=== PATIENT | female | born 1995 | race Caucasian/White ===

== ENCOUNTER 2017-05-29 07:47 | Inpatient (IN) | payer BC, OTHER ==
[2017-05-29] MEDS ORDERED: diphenhydrAMINE 50 MG CAPSULE PO PRN (14:45)
[2017-05-29] MEDS ORDERED: MAG HYDROX/AL HYDROX/SIMETH 30 ML LIQUID UDC PO PRN (14:45)
[2017-05-29] MEDS ORDERED: MIRALAX 17 GM POWD.PACK PO PRN (14:45)
[2017-05-29] MEDS ORDERED: METHOCARBAMOL 750 MG TABLET PO PRN (14:45)
[2017-05-29] MEDS ORDERED: LORAZEPAM 1 MG TABLET PO PRN ×2 (14:45)
[2017-05-29] MEDS ORDERED: ONDANSETRON ODT 4 MG TAB.RAPDIS SL PRN (14:45)
[2017-05-29] MEDS ORDERED: ACETAMINOPHEN 325 MG TABLET PO PRN (14:45)
[2017-05-29] MEDS ORDERED: LORAZEPAM 2 MG/1 ML VIAL IM PRN (14:45)
[2017-05-29] MEDS ORDERED: LOPERAMIDE HCL 2 MG CAPSULE PO PRN ×2 (14:45)
[2017-05-29] MEDS ORDERED: HYDROXYZINE PAMOATE 25 MG CAPSULE PO PRN (14:45)
[2017-05-29] MEDS ORDERED: DICYCLOMINE HCL 20 MG TABLET PO PRN (14:45)
[2017-05-29] MEDS ORDERED: IBUPROFEN 600 MG TABLET PO PRN (14:45)
[2017-05-29] MEDS ORDERED: ONDANSETRON 4 MG/2 ML VIAL IM PRN (14:45)
[2017-05-29] MEDS ORDERED: CLONIDINE HCL 0.1 MG TABLET PO PRN (14:45)
[2017-05-29] MEDS ORDERED: MAGNESIUM HYDROXIDE 30 ML LIQUID UDC PO PRN (14:45)
--- NOTE | 2017-05-29 14:45 | NUR ---
Pre-assessment note: Assessed pt in intake office, pt is alert and oriented at this time, pt is in stable condition. explained facility protocols and procedures, pt verbalized understanding.
[2017-05-29] MEDS ORDERED: PRAZ2CAP2 PO (15:01)
[2017-05-29] MEDS ORDERED: LAMO25TA PO (15:02)
--- NOTE | 2017-05-29 15:15 | NUR ---
pt is on the unit, body check was completed. pt at this time is verbalizing that she is contemplating if she wants to stay or not. admission process has not been completed at this time
--- NOTE | 2017-05-29 16:36 | NUR ---
pt verbalized she no longer wants to continue detox, pt is very agitated and emotional at this time. discharge staff and Dr. Gudino is speaking with pt at this time.
--- NOTE | 2017-05-29 16:51 | NUR ---
AMA NOTE: pt did not want to complete detox, pt was very aggressive and very rude to staff. explained risk and benefits of leaving against medical advice. pt is alert and oriented and aware of risk.
[2017-05-29 17:01] LABS: *AMPHETAMINE, URINE POSITIVE (NEGATIVE); *BARBITURATE, URINE NEGATIVE (NEGATIVE); *CANNABINOID, URINE POSITIVE (NEGATIVE); *COCCAINE, URINE NEGATIVE (NEGATIVE); *OPIATE, URINE NEGATIVE (NEGATIVE); *PHENCYCLIDINE SCREEN,URINE NEGATIVE (NEGATIVE)
[2017-05-29 17:15] LABS: *URINE HCG, QUAL NEGATIVE (NEGATIVE)
[2017-05-29] MEDS ORDERED: PRAZOSIN HCL 1 MG CAPSULE PO SCH (21:00)
[2017-05-30] MEDS ORDERED: THIAMINE HCL 100 MG TABLET PO SCH (09:00)
[2017-05-30] MEDS ORDERED: FOLIC ACID 1 MG TABLET PO SCH (09:00)
[2017-05-30] MEDS ORDERED: TUBERCULIN,PURIF.PROT.DERIV. 5 TU/0.1 ML TEST ID ONE (09:00)
[2017-05-30] MEDS ORDERED: MULTIVITAMINS,THERAPEUTIC TABLET PO SCH (09:00)
== END 2017-05-29 16:50 | disposition left against medical advice (07) | DRG 894 ==
LOC: SRC 13:45
PROVIDERS: ADMIT Internal Medicine; ATTEND Internal Medicine
DX: F15.220 Other stimulant dependence with intoxication, uncomplicated (principal); F50.9 Eating disorder, unspecified; F10.10 Alcohol abuse, uncomplicated; Y90.9 Presence of alcohol in blood, level not specified; F12.20 Cannabis dependence, uncomplicated; F13.10 Sedative, hypnotic or anxiolytic abuse, uncomplicated; F17.210 Nicotine dependence, cigarettes, uncomplicated; G47.00 Insomnia, unspecified; F43.10 Post-traumatic stress disorder, unspecified; Z81.1 Family history of alcohol abuse and dependence; Z81.3 Family history of other psychoactive substance abuse and dependence; F60.3 Borderline personality disorder; F39 Unspecified mood [affective] disorder
CPT/HCPCS: 80307; 80324; 80349; 84703